=== PATIENT | female | born 1990 | race Hispanic/Latino ===

== ENCOUNTER 2017-12-01 08:35 | Emergency (ER) | payer SELFPAY ==
[2017-12-01 09:41] LABS: Urine Blood TRACE (NEG); Urine Glucose NEGATIVE (NEG); Urine Protein NEGATIVE (NEG); Urine Specific Gravity >1.030 (1.005-1.030); Urine pH 5.5 (5.0-7.0)
[2017-12-01 10:00] LABS: Absolute Lymphocytes (CBC) 2.2 K/uL (0.7-4.9); Absolute Monocytes 0.5 K/uL (0.1-1.3); Absolute Neutrophil 6.1 K/uL (1.8-8.0); Basophils % 0.3 % (0-1.3); Eosinophils % 1.7 % (0-4.4); Hematocrit 41.4 % (36.0-45.0); Lymphocytes % 24.4 % (15.3-44.8); MCV 93.6 fL (80-100); MPV 9.8 fL (7.6-11.3); Monocytes % 5.2 % (3.3-12.3); RBC Red Blood Cell Count 4.43 M/uL (3.86-4.86)
[2017-12-01 10:09] LABS: Bicarbonate 23 mEq/L (21-31); Glucose Level 101 mg/dL (65-120); Potassium 3.7 mEq/L (3.6-5.0); Sodium Level 138 mEq/L (135-145)
[2017-12-01 10:10] LABS: BUN Blood Urea Nitrogen 9 mg/dL (6-20)
--- NOTE | 2017-12-01 11:15 | RAD REPORT ---
EXAM DESCRIPTION: US - Transvaginal OB - 12/01/2017 10:40 am CLINICAL HISTORY: Vaginal bleeding, positive study COMPARISON: None. FINDINGS: A round anechoic structure is present in the fundal endometrial cavity. This is most likel y a gestational sac at 5 weeks 0 day size. No pole or yolk sac confirmed. No hematoma, mass or other abnormality within the endometrial cavity. Cervical canal appears closed. Patient has prominent veins in the adnexa and periphery of the uterus has a normal variant. No suspicious myometrial mass. The Both ovaries are identifiable and showed no suspicious solid or cystic mass. No abnormal blood or flu id collection in the cul-de-sac. No adnexal masses are present. IMPRESSION: A 5 week 5 day sized gestational sac is seen in the fundal endometrial cavity. No yolk s ac or pole at this time. No intrauterine hematoma or mass. No adnexal abnormality seen. Cervix is closed. Repeat ultrasound imaging could be performed if serial HCG values indicate ongoing .
--- NOTE | 2017-12-01 11:36 | ER ---
Nurse's Notes [facility] Name: Brittani Sykes Age: 27 yrs Sex: Female : 1990 Arrival Date: 12/01/2017 Time: 08:38 Bed 17 Private MD: Diagnosis: Threatened Presentation: 12/01 09:08 Presenting complaint: Patient states: uruguayan speaking only: LMP- 10/21/17; hx of hj previous miscarriages; i started bleeding today; like a "period" type of bleed; denies fever and chills; reports nausea;. Transition of care: patient was not received from another setting of care. Onset of symptoms was December 01, 2017. Initial Sepsis Screen: Does the patient meet any 2 criteria? No. Patient's initial sepsis screen is negative. Does the patient have a suspected source of infection? No. Patient's initial sepsis screen is negative. Care prior to arrival: None. 09:08 Method Of Arrival: Ambulatory hj 09:08 Acuity: VERA 3 hj Triage Assessment: 09:11 General: Appears in no apparent distress. uncomfortable, Behavior is calm, cooperative, hj appropriate for age. Pain: Complains of pain in abdomen. : Reports vaginal bleeding that is. 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 - Social history:: Smoking status: Patient/guardian denies using tobacco. Screenin:47 Abuse screen: Denies threats or abuse. Nutritional screening: No deficits noted. ae1 Tuberculosis screening: No symptoms or risk factors identified. Fall Risk None identified. Assessment: 09:26 General: Appears in no apparent distress. comfortable, well groomed, Behavior is calm, ae1 cooperative. Neuro: Level of Consciousness is awake, alert, obeys commands, Oriented to person, place, time, situation. Cardiovascular: Patient's skin is warm and dry. Respiratory: Airway is patent Respiratory effort is even, unlabored, Respiratory pattern is regular, symmetrical. GI: No signs and/or symptoms were reported involving the gastrointestinal system. Patient currently denies abdominal pain. : Reports vaginal bleeding that is bright red, moderate flow, Patient denies passing clots. EENT: No signs and/or symptoms were reported regarding the EENT system. Derm: Skin is normal. Musculoskeletal: No signs and/or symptoms reported regarding the musculoskeletal system. 11:00 Reassessment: Patient appears in no apparent distress at this time. Patient and/or ae1 family updated on plan of care and expected duration. Pain level reassessed. Patient denies pain at this time. 12:07 Obstetrical Assessment: General assessment: awake and alert. ae1 Vital Signs: 09:11 Pulse 79; Resp 18; Temp 98.0(TE); Pulse Ox 100% on R/A; Weight 58.97 kg; Height 5 ft. 8 hj in. (172.72 cm); 10:51 BP 116 / 85; Pulse 77; Resp 18; Pulse Ox 100% ; ae1 09:11 Body Mass Index 19.77 (58.97 kg, 172.72 cm) hj Vitals: 12:06 Heart Tones Please see ultrasound report. . ae1 ED Course: 08:38 Patient arrived in ED. rg4 09:10 Triage completed. hj 09:11 Arm band placed on right wrist. hj 09:18 Fede La PA is PHCP. cp 09:18 Kalpesh Arteaga MD is Attending Physician. cp 09:23 Bernardo Bailon, MERLE is Primary Nurse. ae1 09:46 Inserted saline lock: 20 gauge in right antecubital area, using aseptic technique. ae1 Blood collected. 09:47 Bed in low position. Call light in reach. Side rails up X 1. Pulse ox on. NIBP on. Warm ae1 blanket given. 10:40 Urine collected: clean catch specimen, clear. mh5 10:41 Transvaginal OB US In Process Unspecified. EDMS 10:51 Patient moved back from ultrasound. ae1 12:05 Assist provider with pelvic exam: Set up pelvic tray. Performed by Fede FOREMAN ae1 Patient tolerated well. IV discontinued, intact, bleeding controlled, No redness/swelling at site. Pressure dressing applied. Administered Medications: No medications were administered Point of Care Testing: Urine : 12:06 hCG Reading: Positive; ae1 Outcome: 11:36 Discharge ordered by . cp 12:07 Discharged to home ambulatory, with family, with significant other. ae1 12:07 Condition: stable 12:07 Discharge instructions given to patient, significant other, Instructed on discharge instructions, follow up and referral plans. medication usage, Demonstrated understanding of instructions, Prescriptions given X 1. 12:08 Patient left the ED. ae1 Signatures: Dispatcher [employer] EDMS Antwan Mejia RN RN Fede La PA PA cp Elliott, Andrea, RN RN ae1 Adwoa Potter 4 Mila Oneal [facility]
--- NOTE | 2017-12-01 11:37 | EDPHYS ---
Physician Documentation [facility] Name: Brittani Sykes Age: 27 yrs Sex: Female : 1990 Arrival Date: 12/01/2017 Time: 08:38 Bed 17 Private MD: ED Physician Kalpesh Arteaga HPI: 12/01 09:26 This 27 yrs old Female presents to ER via Ambulatory with complaints of cp Vaginal Bleeding, + Preg <12wks. 09:26 The patient presents to the emergency department with vaginal bleeding, that is cp moderate, with no clots. 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 - Social history:: Smoking status: Patient/guardian denies using tobacco. ROS: 09:32 Constitutional: Negative for body aches, chills, fever, poor PO intake. cp 09:32 Eyes: Negative for injury, pain, redness, and discharge. cp 09:32 ENT: Negative for drainage from ear(s), ear pain, sore throat, difficulty swallowing, difficulty handling secretions. 09:32 Cardiovascular: Negative for chest pain, edema, palpitations. 09:32 Respiratory: Negative for cough, shortness of breath, wheezing. 09:32 Abdomen/GI: Positive for abdominal pain, nausea, Negative for vomiting, diarrhea, constipation, black/tarry stool, rectal bleeding. 09:32 : Positive for vaginal bleeding, Negative for urinary symptoms, flank pain. 09:32 Skin: Negative for cellulitis, rash. 09:32 Neuro: Negative for altered mental status, dizziness, headache, weakness. 09:32 All other systems are negative. Exam: 09:35 Constitutional: The patient appears in no acute distress, alert, awake, non-toxic, well cp developed, well nourished. 09:35 Head/Face: Normocephalic, atraumatic. cp 09:35 Eyes: Pupils equal round and reactive to light, extra-ocular motions intact. Lids and cp lashes normal. Conjunctiva and sclera are non-icteric and not injected. Cornea within normal limits. Periorbital areas with no swelling, redness, or edema. ENT: Nares patent. No nasal discharge, no septal abnormalities noted. Tympanic membranes are normal and external auditory canals are clear. Oropharynx with no redness, swelling, or masses, exudates, or evidence of obstruction, uvula midline. Mucous membranes moist. Chest/axilla: Normal chest wall appearance and motion. Nontender with no deformity. No lesions are appreciated. Cardiovascular: Regular rate and rhythm with a normal S1 and S2. No gallops, murmurs, or rubs. Normal PMI, no JVD. No pulse deficits. Respiratory: Lungs have equal breath sounds bilaterally, clear to auscultation and percussion. No rales, rhonchi or wheezes noted. No increased work of breathing, no retractions or nasal flaring. 09:35 Abdomen/GI: Inspection: abdomen appears normal, Bowel sounds: active, all quadrants, Palpation: soft, in all quadrants, mild abdominal tenderness, in the suprapubic area, rebound tenderness, is not appreciated, voluntary guarding, is not appreciated, involuntary guarding, is not appreciated. 09:35 Back: CVA tenderness, is absent. 11:20 : CVA tenderness, is absent, Pelvic Exam: External exam: is normal, Speculum exam: cp scant bleeding, os that is closed, no tissue in cervix is seen, no tissue in vagina is seen, bimanual exam reveals uterine tenderness, no adnexa tenderness or masses bilaterally, discharge, white, Kalee. Sexual behavior: the patient is sexually active, and reports a single partner. Vital Signs: 09:11 Pulse 79; Resp 18; Temp 98.0(TE); Pulse Ox 100% on R/A; Weight 58.97 kg; Height 5 ft. 8 hj in. (172.72 cm); 10:51 BP 116 / 85; Pulse 77; Resp 18; Pulse Ox 100% ; ae1 09:11 Body Mass Index 19.77 (58.97 kg, 172.72 cm) hj MDM: 09:18 Patient medically screened. cp 09:30 Differential diagnosis: STD, ectopic . cp 11:35 Data reviewed: vital signs, nurses notes, lab test result(s), radiologic studies, cp ultrasound, and as a result, I will discharge patient. 11:35 Counseling: I had a detailed discussion with the patient and/or guardian regarding: the cp historical points, exam findings, and any diagnostic results supporting the discharge/admit diagnosis, lab results, radiology results, the need for outpatient follow up, an OB/Gyne specialist, to return to the emergency department if symptoms worsen or persist or if there are any questions or concerns that arise at home. 11:35 ED course: VSS. Discussed results of labs and US. Will discharge to home with pelvic cp rest precautions and recommend 48 hr recheck of beta-hcg. 12/01 09:28 Order name: Urine Dipstick--Ancillary (enter results); Complete Time: 10:49 12/01 09:28 Order name: Urine --Ancillary (enter results); Complete Time: 10:49 12/01 09:28 Order name: Quantitative Hcg; Complete Time: 10:49 12/01 10:49 Interpretation: HCGQ 2786.0; Reviewed. 12/01 09:28 Order name: Basic Metabolic Panel; Complete Time: 10:49 cp 12/01 09:28 Order name: CBC with Diff; Complete Time: 10:49 cp 12/01 09:28 Order name: Abo/rh Typing; Complete Time: 10:49 12/01 09:13 Order name: Urine Dipstick-Ancillary (obtain specimen); Complete Time: 09:34 12/01 09:13 Order name: Urine Test (obtain specimen); Complete Time: 09:34 12/01 09:28 Order name: IV Saline Lock; Complete Time: 09:46 cp 12/01 09:28 Order name: Labs collected and sent; Complete Time: 09:46 cp 12/01 09:28 Order name: NPO; Complete Time: 09:38 cp 12/01 09:28 Order name: Pelvic Exam Setup; Complete Time: 09:38 cp 12/01 09:28 Order name: Transvaginal OB US; Complete Time: 11:34 cp 12/01 10:31 Order name: ABO/RH no charge; Complete Time: 10:49 EDMS Administered Medications: No medications were administered Point of Care Testing: Urine : 12:06 hCG Reading: Positive; ae1 Disposition: 16:51 Co-signature as Attending Physician, Kalpesh Arteaga MD. rn Disposition: 12/01/17 11:36 Discharged to Home. Impression: Threatened . - Condition is Stable. - Discharge Instructions: Medicines During , Threatened Miscarriage, Pelvic Rest, Threatened Miscarriage, [id number]. - Prescriptions for Vitamin 27- 0.8 mg Oral Tablet - take 1 tablet by ORAL route once daily; 60 tablet. - Medication Reconciliation Form, Thank You Letter, Antibiotic Education, Prescription Opioid Use form. - Follow up: Private Physician; When: 48 Hours; Reason: Repeat Beta-HCG (48 Hours). - Problem is new. - Symptoms are unchanged. Signatures: Dispatcher [employer] EDGA Kalpesh Arteaga MD MD rn Joaquin, Henry, RN RN hj Page, Corey, PA PA cp Elliott, Andrea, RN RN ae1 Corrections: (The following items were deleted from the chart) 12:08 11:36 12/01/2017 11:36 Discharged to Home. Impression: Threatened . Condition ae1 is Stable. Forms are Medication Reconciliation Form, Thank You Letter, Antibiotic Education, Prescription Opioid Use. Follow up: Private Physician; When: 48 Hours; Reason: Repeat Beta-HCG (48 Hours). Problem is new. Symptoms are unchanged. cp
== END 2017-12-01 12:08 | disposition home or self-care (01) ==
LOC: ER 08:35
DX: O20.0 Threatened abortion (principal)
CPT/HCPCS: 36415; 76817; 80048; 81003; 81025; 84702; 85025; 86900; 86901; 99285

== ENCOUNTER 2018-08-08 19:27 | Emergency (ER) | payer SELFPAY ==
[2018-08-08 20:18] LABS: Absolute Lymphocytes (CBC) 1.5 K/uL (0.7-4.9); Absolute Monocytes 0.9 K/uL (0.1-1.3); Absolute Neutrophil 8.6 K/uL (1.8-8.0); Basophils % 0.2 % (0-1.3); Eosinophils % 0.4 % (0-4.4); Hematocrit 40.4 % (36.0-45.0); Lymphocytes % 13.4 % (15.3-44.8); MPV 8.8 fL (7.6-11.3); RBC Red Blood Cell Count 4.42 M/uL (3.86-4.86)
[2018-08-08] MEDS ORDERED: MORPHINE 4 MG/ML SYR ONE (20:20)
[2018-08-08] MEDS ORDERED: ONDANSETRON 4 MG/2 ML VIAL ONE (20:20)
[2018-08-08] MEDS ORDERED: NA CHLORIDE 0.9% 1,000 ML ONE (20:21)
[2018-08-08 20:31] LABS: Urine Blood TRACE (NEG); Urine Glucose NEGATIVE (NEG); Urine Protein NEGATIVE (NEG); Urine pH 7.5 (5.0-7.0)
[2018-08-08 20:35] LABS: ALT/SGPT 22 U/L (12-78); AST/SGOT 16 U/L (15-37); Albumin 3.8 g/dL (3.4-5.0); Alkaline Phosphatase 79 U/L (45-117); BUN Blood Urea Nitrogen 8 mg/dL (7-18); Bicarbonate 24 mmol/L (21-32); Bilirubin Direct 0.3 mg/dL (0-0.2); Bilirubin Total 1.2 mg/dL (0.2-1.0); Glucose Level 90 mg/dL (74-106); Lipase 75 U/L (73-393); Potassium 3.6 mmol/L (3.5-5.1); Protein, Total 8.1 g/dL (6.4-8.2); Sodium Level 140 mmol/L (136-145)
--- NOTE | 2018-08-08 21:00 | RAD REPORT ---
EXAM DESCRIPTION: CT - Abdomen Pelvis W Contrast - 08/08/2018 8:38 pm CLINICAL HISTORY: Abdominal pain, cough COMPARISON: None. TECHNIQUE: Biphasic, helical CT imaging of the abdomen and pelvis was performed following 100 ml non -ionic IV contrast. No oral contrast. All CT scans are performed using dose optimization technique as appropriate and may include automated exposure control or mA/KV adjustment according to patient size. FINDINGS: Patchy interstitial and alveolar opacities are present as a minimal focus in the posterior right gutter. anteromedial right base also shows a 3 centimeter area of focal consolidation. Patchy pneumonia is favored for both findings. No cardiomegaly or pericardial effusion. The liver, spleen, and pancreas show no suspicious findings. Cholecystectomy clips are present. No bi liary tree abnormality. Symmetric renal function is seen with no hydronephrosis or suspicious renal mass. No pyelonephritis o r acute parenchymal process. No bladder abnormalities. No adrenal abnormalities. No gastric abnormality. Proximal small bowel loops are unremarkable. Fluid-filled distal small bowel loops are present. No appendicitis findings. A few small mesenteric lymph nodes are seen. No free ai r, free fluid or inflammatory stranding. No mass or bulky lymphadenopathy. A small fat only umbilica l hernia is present. Uterus and ovaries show no suspicious findings. No suspicious bony findings. IMPRESSION: Patchy right lung base pneumonia findings are present. Prominent distal small bowel loops are present without obstruction, mass or wall thickening. Findings could reflect a nonspecific enteritis.
[2018-08-08] MEDS ORDERED: levoFLOXacin 750 MG TAB ONE (21:25)
--- NOTE | 2018-08-08 21:53 | ER ---
Nurse's Notes [facility] Name: Brittani Sykes Age: 28 yrs Sex: Female : 1990 Arrival Date: 08/08/2018 Time: 19:30 Bed 15 Private MD: Diagnosis: Vomiting;Diarrhea, unspecified;Pneumonia Presentation: 08/08 19:31 Presenting complaint: states: pt only speaks chinese. abdominal pain, upper ch since 0000, with vomiting diarrhea, and cough. felt feverish. Transition of care: patient was not received from another setting of care. Onset of symptoms was August 08, 2018 at 00:00. Initial Sepsis Screen: Does the patient meet any 2 criteria? No. Patient's initial sepsis screen is negative. Does the patient have a suspected source of infection? No. Patient's initial sepsis screen is negative. Care prior to arrival: None. 19:31 Method Of Arrival: Ambulatory 19:31 Acuity: VERA 3 22:12 Risk Assessment: Do you want to hurt yourself or someone else? Patient reports no tl2 desire to harm self or others. Triage Assessment: 19:32 General: Appears in no apparent distress. uncomfortable, Behavior is cooperative. Pain: Complains of pain in epigastric area, right upper quadrant and left upper quadrant. GI: Reports upper abdominal pain, diarrhea, nausea, vomiting. 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 - Social history:: Smoking status: Patient/guardian denies using tobacco. - Ebola Screening: : Patient negative for fever greater than or equal to 101.5 degrees Fahrenheit, and additional compatible Ebola Virus Disease symptoms Patient denies exposure to infectious person Patient denies travel to an Ebola-affected area in the 21 days before illness onset No symptoms or risks identified at this time. Screenin:57 Abuse screen: Denies threats or abuse. Nutritional screening: No deficits noted. jb4 Tuberculosis screening: No symptoms or risk factors identified. Fall Risk Total Mcelroy Fall Scale indicates No Risk (0-24 pts). Assessment: 19:57 General: Appears in no apparent distress. uncomfortable, Behavior is calm, cooperative, jb4 appropriate for age. Pain: Complains of pain in abdomen Pain does not radiate. Pain currently is 6 out of 10 on a pain scale. Quality of pain is described as burning. Neuro: Level of Consciousness is awake, alert, obeys commands, Oriented to person, place, time, situation. Cardiovascular: Patient's skin is warm and dry. Respiratory: Airway is patent Respiratory effort is even, unlabored, Respiratory pattern is regular, symmetrical. GI: Abdomen is flat, non-distended, Bowel sounds present X 4 quads. Abd is soft X 4 quads Abd is non tender in right lower quadrant and left lower quadrant Abdomen is tender to palpation in epigastric area, right upper quadrant and left upper quadrant Reports upper abdominal pain, diarrhea, nausea, vomiting. : No signs and/or symptoms were reported regarding the genitourinary system. EENT: No signs and/or symptoms were reported regarding the EENT system. Derm: Skin is intact, Skin is pink, warm \T\ dry. Musculoskeletal: Circulation, motion, and sensation intact. 20:51 Reassessment: Patient appears in no apparent distress at this time. Patient and/or jb4 family updated on plan of care and expected duration. Pain level reassessed. Patient is alert, oriented x 3, equal unlabored respirations, skin warm/dry/pink. Patient states feeling better. 22:10 Reassessment: Patient appears in no apparent distress at this time. Patient and/or tl2 family updated on plan of care and expected duration. Pain level reassessed. Patient is alert, oriented x 3, equal unlabored respirations, skin warm/dry/pink. pt and family verbalized understanding of discharge instructions, need for follow up and prescription usage Patient states feeling better. Vital Signs: 19:32 BP 108 / 75; Pulse 110; Resp 18; Temp 99.1; Pulse Ox 97% on R/A; Weight 61.23 kg; ch Height 5 ft. 3 in. (160.02 cm); Pain 8/10; 20:45 BP 101 / 76; Pulse 87; Resp 16; Pulse Ox 100% on R/A; jb4 22:10 BP 110 / 84; Pulse 85; Resp 18; Pulse Ox 100% on R/A; tl2 19:32 Body Mass Index 23.91 (61.23 kg, 160.02 cm) ED Course: 19:30 Patient arrived in ED. 19:32 Triage completed. 19:32 Arm band placed on left wrist. Patient placed in an exam room, on a stretcher. 19:34 Kennedy Ga PA is PHCP. [facility] 19:34 Kalpesh Arteaga MD is Attending Physician. [facility] 19:36 Sathya Morelos, MERLE is Primary Nurse. jb4 19:57 Patient has correct armband on for positive identification. Placed in gown. Bed in low jb4 position. Call light in reach. Side rails up X 1. Pulse ox on. NIBP on. 20:00 Initial lab(s) drawn, by me, sent to lab. Inserted saline lock: 20 gauge in right jb4 antecubital area, using aseptic technique. Blood collected. 20:[address] via wheelchair. ka1 20:33 CT completed. Patient tolerated procedure well. ka1 20:38 CT Abd/Pelvis - W/Contrast In Process Unspecified. EDMS 20:[address] from [address]. ka1 22:10 No provider procedures requiring assistance completed. IV discontinued, intact, tl2 bleeding controlled, No redness/swelling at site. Pressure dressing applied. Administered Medications: 20:27 Drug: NS 0.9% 1000 ml Route: IV; Rate: 1 bolus; Site: right antecubital; jb4 22:12 Follow up: IV Status: Completed infusion; IV Intake: 1000ml tl2 20:28 Drug: Zofran 4 mg Route: IVP; Site: right antecubital; jb4 20:53 Follow up: Response: No adverse reaction jb4 20:30 Drug: morphine 2 mg Route: IVP; Site: right antecubital; jb4 20:53 Follow up: Response: No adverse reaction; Pain is decreased jb4 21:13 CANCELLED (different abx used): Rocephin - (cefTRIAXone) 1 grams IVPB once over 30 jmm mins; (mix in 50 mL NS) 21:17 Drug: LevaQUIN 750 mg Route: PO; jb4 22:12 Follow up: Response: No adverse reaction tl2 Intake: 22:12 IV: 1000ml; Total: 1000ml. tl2 Outcome: 21:52 Discharge ordered by . trina 22:10 Discharged to home ambulatory, with family. tl2 22:10 Condition: stable 22:10 Discharge instructions given to patient, family, Instructed on discharge instructions, follow up and referral plans. medication usage, Demonstrated understanding of instructions, follow-up care, medications, Prescriptions given X 2. 22:13 Patient left the ED. jb4 Signatures: Dispatcher [employer] EDMS Sona Arroyo, RN RN Kennedy Valentine PA PA jmm Knox, Taylor, RN RN tl2 Sathya Morelos RN RN jb4 Jenniffer Gracia Corrections: (The following items were deleted from the chart) 20:52 20:51 Reassessment: Patient appears in no apparent distress at this time. Patient jb4 and/or family updated on plan of care and expected duration. Pain level reassessed. Patient is alert, oriented x 3, equal unlabored respirations, skin warm/dry/pink. jb4
--- NOTE | 2018-08-08 21:54 | EDPHYS ---
Physician Documentation [facility] Name: Brittani Sykes Age: 28 yrs Sex: Female : 1990 Arrival Date: 08/08/2018 Time: 19:30 Bed 15 Private MD: ED Physician Kalpesh Arteaga HPI: 08/08 19:51 This 28 yrs old Female presents to ER via Ambulatory with complaints of jmm Abdominal Pain. 19:51 The patient presents with abdominal pain. Onset: The symptoms/episode began/occurred jmm gradually, 1 day(s) ago. The symptoms do not radiate. Associated signs and symptoms: Pertinent positives: nausea and vomiting, diarrhea. This is a 28 year old female with no chronic medical conditions that presents to the ED with left upper abdominal pain, vomiting, and diarrhea beginning last night. Patient states she recently finished a course of abx for a cold. Patient also states recently returning from [place]. . 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 - Social history:: Smoking status: Patient/guardian denies using tobacco. - Ebola Screening: : Patient negative for fever greater than or equal to 101.5 degrees Fahrenheit, and additional compatible Ebola Virus Disease symptoms Patient denies exposure to infectious person Patient denies travel to an Ebola-affected area in the 21 days before illness onset No symptoms or risks identified at this time. ROS: 19:51 Cardiovascular: Negative for chest pain, palpitations, and edema, Respiratory: Negative jmm for shortness of breath, cough, wheezing, and pleuritic chest pain. 19:51 Constitutional: Positive for body aches, chills. 19:51 Abdomen/GI: Positive for abdominal pain, nausea and vomiting, diarrhea. 19:51 All other systems are negative. Exam: 19:51 Constitutional: This is a well developed, well nourished patient who is awake, alert, jmm and in no acute distress. Head/Face: atraumatic. Eyes: EOMI, no conjunctival erythema appreciated ENT: Moist Mucus Membranes Neck: Trachea midline, Supple Chest/axilla: Normal chest wall appearance and motion. Cardiovascular: Regular rate and rhythm. No edema appreciated Respiratory: Normal respirations, no respiratory distress appreciated 19:51 Constitutional: The patient appears in no acute distress, alert, awake. 19:51 Abdomen/GI: Inspection: abdomen appears normal, Bowel sounds: normal, Palpation: soft, mild abdominal tenderness, in the left upper quadrant. 19:51 Back: ROM is normal. 19:51 Musculoskeletal/extremity: ROM: intact in all extremities. 19:51 Skin: Appearance: Color: normal in color. 19:51 Neuro: Orientation: is normal, Mentation: is normal, Memory: is normal. 19:51 Psych: Behavior/mood is pleasant, cooperative. Vital Signs: 19:32 BP 108 / 75; Pulse 110; Resp 18; Temp 99.1; Pulse Ox 97% on R/A; Weight 61.23 kg; ch Height 5 ft. 3 in. (160.02 cm); Pain 8/10; 20:45 BP 101 / 76; Pulse 87; Resp 16; Pulse Ox 100% on R/A; jb4 22:10 BP 110 / 84; Pulse 85; Resp 18; Pulse Ox 100% on R/A; tl2 19:32 Body Mass Index 23.91 (61.23 kg, 160.02 cm) ch MDM: 19:51 Patient medically screened. [facility] 21:16 Data reviewed: vital signs, nurses notes. [facility] 21:50 Data reviewed: lab test result(s), radiologic studies, CT scan. Counseling: I had a [facility] detailed discussion with the patient and/or guardian regarding: the historical points, exam findings, and any diagnostic results supporting the discharge/admit diagnosis, lab results, radiology results, the need for outpatient follow up, to return to the emergency department if symptoms worsen or persist or if there are any questions or concerns that arise at home. ED course: Patient is able to tolerate PO in the ED.Alert and non toxic in appearance. Patient was given strict return precautions. Patient understood and agrees with the plan of care. . 08/08 19:52 Order name: Basic Metabolic Panel; Complete Time: 20:46 [facility] 08/08 19:52 Order name: CBC with Diff; Complete Time: 20:46 [facility] 08/08 19:52 Order name: Creatinine for Radiology; Complete Time: 20:46 [facility] 08/08 19:52 Order name: Hepatic Function; Complete Time: 20:46 [facility] 08/08 19:52 Order name: Lipase; Complete Time: 20:46 [facility] 08/08 20:04 Order name: Urine Dipstick--Ancillary (enter results); Complete Time: 20:46 [facility] 08/08 19:52 Order name: IV Saline Lock; Complete Time: 20:04 [facility] 08/08 20:06 Order name: Urine --Ancillary (enter results); Complete Time: 20:46 [facility] 08/08 20:08 Order name: CT Abd/Pelvis - W/Contrast; Complete Time: 21:02 [facility] 08/08 19:52 Order name: Labs collected and sent; Complete Time: 20:04 [facility] 08/08 19:52 Order name: Urine Test (obtain specimen); Complete Time: 20:04 [facility] 08/08 21:13 Order name: PO challenge; Complete Time: 21:18 jmm Administered Medications: 20:27 Drug: NS 0.9% 1000 ml Route: IV; Rate: 1 bolus; Site: right antecubital; jb4 22:12 Follow up: IV Status: Completed infusion; IV Intake: 1000ml tl2 20:28 Drug: Zofran 4 mg Route: IVP; Site: right antecubital; jb4 20:53 Follow up: Response: No adverse reaction jb4 20:30 Drug: morphine 2 mg Route: IVP; Site: right antecubital; jb4 20:53 Follow up: Response: No adverse reaction; Pain is decreased jb4 21:13 CANCELLED (different abx used): Rocephin - (cefTRIAXone) 1 grams IVPB once over 30 jmm mins; (mix in 50 mL NS) 21:17 Drug: LevaQUIN 750 mg Route: PO; jb4 22:12 Follow up: Response: No adverse reaction tl2 Disposition: 08/09 03:12 Co-signature as Attending Physician, Kalpesh Arteaga MD. rn Disposition: 08/08/18 21:52 Discharged to Home. Impression: Vomiting, Diarrhea, unspecified, Pneumonia. - Condition is Stable. - Discharge Instructions: Food Choices to Help Relieve Diarrhea, Adult, Diarrhea, Adult, Nausea and Vomiting, Adult. - Prescriptions for Zofran ODT 4 mg Oral tablet,disintegrating - place 1 tablet by TRANSLINGUAL route every 4-6 hours; 20 tablet. Levaquin 750 mg Oral Tablet - take 1 tablet by ORAL route once daily for 10 days; 10 tablet. - Medication Reconciliation Form, Thank You Letter, Antibiotic Education, Prescription Opioid Use form. - Follow up: Private Physician; When: 2 - 3 days; Reason: Recheck today's complaints, Continuance of care, Re-evaluation by your physician. Signatures: Dispatcher [employer] EDSona Barksdale, RN RN Kennedy Valentine PA PA jmm Nieto, Roman, MD MD rn Bryson, James, RN RN jb4 Sabine Gleason RN tl2 Corrections: (The following items were deleted from the chart) 08/08 21:13 21:03 Rocephin - (cefTRIAXone) 1 grams IVPB once over 30 mins; (mix in 50 mL NS) trina ordered. trina 22:13 21:52 08/08/2018 21:52 Discharged to Home. Impression: Vomiting; Diarrhea, unspecified; jb4 Pneumonia. Condition is Stable. Forms are Medication Reconciliation Form, Thank You Letter, Antibiotic Education, Prescription Opioid Use. Follow up: Private Physician; When: 2 - 3 days; Reason: Recheck today's complaints, Continuance of care, Re-evaluation by your physician. trina
== END 2018-08-08 22:13 | disposition home or self-care (01) ==
LOC: ER 19:27
DX: R11.10 Vomiting, unspecified (principal); J18.9 Pneumonia, unspecified organism; R19.7 Diarrhea, unspecified
CPT/HCPCS: 36415; 74177; 80048; 80076; 81003; 81025; 83690; 85025; 96361; 96374; 96375; 99284; J2405; J7030; Q9967

== ENCOUNTER 2022-07-24 04:04 | Inpatient (IN) | payer MEDICAID, SELFPAY ==
--- NOTE | 2022-07-23 06:16 | PREOPHP ---
Date of Admission: 07/24/2022 History Of Present Illness: A 31-year-old, 8, para 2, 5 miscarriages, 2 C-sections, for repe at section. The patient will be 39 weeks tomorrow. The surgery was scheduled for day after tomorrow, but tomorrow is the patient's birthday and she wishes to move the up, which is "s igned" by me. The baby will be 39 weeks, which is in accordance with our guidelines. Infection; blo od loss; anesthetic complications; injury to bladder, bowel, ureter; postoperative complications; arias ts in legs; pneumonia discussed. The patient knows fully well this does not constitute all possible problems that could occur during or following surgery. Family History: Grandmother with hypertension and aunt, and grandmother with diabetes and aunt with cervical cancer. Past Surgical History: The patient has had a gallbladder and 2 C-sections. Allergies: NO ALLERGIES. Medications: vitamins prior to admission. Has been taking baby aspirin up until 35 weeks. Social History: No cigarettes. Physical Examination: HEENT: Clear. Pupils equal, round, reactive to light accommodation. Conjunctivae well perfused. N o oral, lingual, or buccal lesions. Chest and Lungs: Clear. Heart: Without murmurs, thrills, heaves, or rubs. Breasts: Not examined today. Abdomen: Term size. Baby is vertex with very half fingertip dilated. Assessment And Plan: We will proceed with repeat section tomorrow. ROSSANA/SUSHMA Voice ID: [id number]
[2022-07-24] MEDS ORDERED: CHLORHEXIDINE GLUCO 4% 120 ML TOP ONE (04:48)
[2022-07-24] MEDS ORDERED: Ringers Lactate 1,000 ML IV PRN (05:00)
[2022-07-24] MEDS ORDERED: Ringers Lactate 1,000 ML IV SCH (05:30)
[2022-07-24 05:36] VITALS: BMI 28.8
[2022-07-24 05:36] LABS: Absolute Lymphocytes (CBC) 2.7 K/uL (0.7-4.9); Hematocrit 35.5 % (36.0-45.0); Lymphocytes % 33.1 % (15.3-44.8); MCV 93.2 fL (80-100); MPV 10.8 fL (7.6-11.3); RBC Red Blood Cell Count 3.81 M/uL (3.86-4.86)
[2022-07-24 05:46] VITALS: O2SAT 97
[2022-07-24 05:49] LABS: SARS-CoV-2 Antigen Rapid Res Negative (Negative)
[2022-07-24] MEDS ORDERED: NA CIT/CITRIC AC 30 ML ORAL UDC PO ONE (06:00)
[2022-07-24] MEDS ORDERED: FAMOTIDINE 20 MG/2 ML VIAL IV ONE (06:00)
[2022-07-24] MEDS ORDERED: CEFAZOLIN 2 GM in NA CHLORIDE 0.9% 50 ML IVPB SCH (06:00)
[2022-07-24] MEDS ORDERED: METOCLOPRAMIDE 10 MG/2mL INJ IV SCH (06:00)
[2022-07-24 06:18] LABS: Specific Gravity 1.013 (1.005-1.030); Urine Bacteria <20 /HPF (<20); Urine Bilirubin NEGATIVE (Negative); Urine Blood Negative (Negative); Urine Clarity Turbid (Clear); Urine Color Light-Yellow (Yellow); Urine Glucose NEGATIVE (Negative); Urine Mucus Slight /HPF (None Seen); Urine Protein NEGATIVE (Negative); Urine RBC None Seen /HPF (None Seen); Urine Urobilinogen Normal (Normal)
[2022-07-24] MEDS ORDERED: CEFAZOLIN SODIUM 1 GM/VIAL ONE (06:38)
[2022-07-24] MEDS ORDERED: NA CHLORIDE 0.9% 100 ML ONE (06:40)
[2022-07-24 06:53] LABS: Hepatitis B surface AG Interp. Nonreactive (Nonreactive)
[2022-07-24] MEDS ORDERED: OXYTOCIN 10 UNIT/ML ML ONE ×2 (06:55→08:24)
[2022-07-24] MEDS ORDERED: EPHEDRINE SULF 50 MG/ML VIAL ONE (06:55)
[2022-07-24] MEDS ORDERED: MORPHINE SULFATE/PF 1 MG/ML (10 ML AMP) ONE (06:55)
[2022-07-24] MEDS ORDERED: LIDOCAINE 1% MPF 5 ML VIAL ONE (06:56)
[2022-07-24] MEDS ORDERED: NS 0.9% VIAL 10 ML ONE (06:57)
[2022-07-24] MEDS ORDERED: BUPIVACAINE 0.75% (PF) 2 ML SP ONE (07:21)
[2022-07-24] MEDS ORDERED: ONDANSETRON 4 MG/2 ML VIAL ONE (07:21)
[2022-07-24] MEDS ORDERED: GLYCOPYRROLATE 0.2 MG/ML SYR ONE (07:23)
[2022-07-24] MEDS ORDERED: METHYLERGONOVINE 0.2 MG TAB PO PRN (08:26)
[2022-07-24] MEDS ORDERED: DIPHENHYDRAMINE 25 MG TAB/CAP PO PRN (08:26)
[2022-07-24] MEDS ORDERED: KETOROLAC 30 MG/ML INJ IV PRN (08:26)
[2022-07-24] MEDS ORDERED: ACETAMINOPHEN 500 MG TAB PO PRN ×2 (08:26)
[2022-07-24] MEDS ORDERED: KETOROLAC 30 MG/ML INJ IM PRN (08:26)
[2022-07-24] MEDS ORDERED: BISACODYL 10 MG RECTAL SUPP PR PRN (08:26)
[2022-07-24] MEDS ORDERED: ONDANSETRON 4 MG/2 ML VIAL IV PRN (08:26)
[2022-07-24] MEDS ORDERED: Oxycodone HCl/Acetaminophen 1 TAB TAB PO PRN ×2 (08:26)
[2022-07-24] MEDS ORDERED: ONDANSETRON 4 MG (ODT) TAB PO PRN (08:26)
[2022-07-24] MEDS ORDERED: IBUPROFEN 600 MG TAB PO PRN (08:52)
[2022-07-24] MEDS ORDERED: D5LR 1,000 ML with OXYTOCIN 20 UNIT IV SCH ×2 (09:00)
[2022-07-24] MEDS ORDERED: OXYTOCIN/LR 1,000 ML IV SCH (09:00)
[2022-07-24] MEDS: D5LR 1,000 ML with OXYTOCIN 20 UNIT IV SCH ×2 (09:05)
--- NOTE | 2022-07-24 09:28 | OP ---
Surgeon: Toño Maguire MD Hunter: Dr. Guerra. Anesthesiologist: Roro Valdivia and Concha Connolly. Indications: A 32-year-old, 8, para 2, 5 miscarriages, 2 C-sections, for repeat sec tion. Full preoperative counseling concerning procedure and possible complications including infecti on; blood loss; anesthetic complications; injury to bladder, bowel, ureter; postoperative complicatio ns; clots in legs; pneumonia. The patient knows fully this does not constitute all the possible prob lems that could occur during or following surgery. Anesthesia: Spinal block anesthesia. Procedure In Detail: After adequate prepping and draping, time-out was performed. At this point, a Pfannenstiel incision was created along the previous incision site. The incision was carried to the fascia. The fascia was incised and incision carried transversely bilaterally. Anterior and posterio r fascial planes were developed with both blunt and sharp dissection. There was significant scarring in the midline, but a small defect was seen and entered. Traction was applied. Low transverse uter ine incision was created. The vertex would not easily elevate above the symphysis. Therefore, vacuu m was placed on the vertex, gentle traction upward and then the vertex clear to symphysis and was del ivered easily. Apgars 9 and 9. Female infant. Estimated 7-pound range. Cord blood was obtained. T he placenta was removed manually. Uterus cleared of clot and blood and exteriorized. Cervical os di lated with ring clamp. Uterus closed with a running locked stitch of 1 chromic. Estimated blood los s 700 cc or less during the procedure. Gutters clear of clot and blood. Uterus replaced in the darron toneal cavity. Inspection of suture line shows no further bleeding. The rectus muscles were reappro ximated loosely with 0 Vicryl 2 stitches. The fascia was closed with 1 Vicryl running from either an gle to the midline. Subcutaneous tissue closed with 2-0 plain. Kalpana used for the skin. The steven ent had been given 2 g of Ancef for prophylaxis, tolerated all procedures well, transferred back to h er room in good condition. Final Diagnoses: Term intrauterine at 39 weeks 1 day, repeat section, spinal bloc k anesthesia, vacuum-assisted delivery. ROSSANA/SUSHMA Voice ID: [id number] Report ID: [id number]
--- NOTE | 2022-07-24 09:28 | PN ---
The patient is laura every 2 minutes, now starting to become uncomfortable. Had been given Sta dol 1 mg IV, Phenergan 25 mg IM. Pelvic exam shows cervix still posterior, but she is a good 4 cm, b ut the baby is not really settled down well, still slightly is ballotable with the exam. She knows i f membranes rupture spontaneously, she is to tell us so we can check quickly to make sure there is no problem with the cord. We will wait another 30 minutes and then check her again. Once the baby com es down a bit lower, we can rupture membranes. She will probably want an epidural at that point. Delbert franks discussion with the patient and family. ROSSANA/SUSHMA Voice ID: [id number] Report ID: [id number]
[2022-07-24] MEDS ORDERED: CEFAZOLIN SODIUM 2 GM in NA CHLORIDE 0.9% 100 ML IVPB ONE (16:00)
[2022-07-24 16:03] LABS: Hematocrit 31.3 % (36.0-45.0)
[2022-07-24] MEDS ORDERED: OXYTOCIN/LR 20 UNIT/1,000 ML BAG IV SCH (17:00)
[2022-07-24 21:42] LABS: RPR (Rapid Plasma Reagin) NON-REACT (NON-REACT)
[2022-07-25] MEDS: D5LR 1,000 ML with OXYTOCIN 20 UNIT IV SCH ×2 (01:31)
[2022-07-26] MEDS ORDERED: FORMULATION-R RECTAL 57GM PR PRN (11:46)
[2022-07-26] MEDS ORDERED: HYDROCORTISONE ACETATE 25MG SUPP PR ONE (12:00)
[2022-07-26 14:44] VITALS: BP 128/70; TEMP 98
--- NOTE | 2022-07-27 03:50 | DS ---
Date of Discharge: 07/26/2022 Covering Physician: Dr. Yannick Hankins. Final Discharge Diagnoses: 1.Intrauterine 39 weeks' of gestation, delivered. 2.Previous scarred uterus. 3.Prior history of deliveries x2. 4.Single live . Procedure Preformed: On 07/24/2022 did a repeat low-transverse delivery by Dr. Maguire. Hospital Course: Brittani is a female, 32-year-old, G8, P2, with prior 2 C-sections is at 39 we eks of gestation admitting to the hospital for repeat . She had already been for and she gave to a female baby, scores of 9 and 9 and weight 7 pounds 9 ounces. Her postp artum course included IV hydration, prophylactic antibiotic, and her diet was slowly, but returned to normal. On postop day 1, examination was benign with a soft abdomen and firm uterus. Her vital sig ns were stable. On postop day 2, she was requested to go home. Examination was done in person plus education both Spanish and Faroese translations were done. Patient having some hemorrhoid discomfort and the bedside education in regarding to [id number] treatment were all done with the patient. In addition, she was given a medicational suppository ointment plus tucks pad given for comfort. S he was sent home in good and stable condition. Disposition: Home. Condition: Stable. Prescription: Tylenol No.3, #20, 1-2 tabs p.o. q.4-6 hours p.r.n. for pain. Diet: Regular diet. Education: Both breast-feeding education and hemorrhoid care were all discussed with the patient. H er blood type is O positive with rubella immune. BW/MODL Voice ID: [id number] Report ID: [id number]
--- NOTE | 2022-07-30 09:57 | PREOPHP ---
Date of Admission: 07/24/2022 History Of Present Illness: A 32-year-old 2, para 1, for repeat section. Infection ; blood loss; anesthetic complications; injury to bladder, bowel, and ureter; postoperative complicat ions; clots in legs; pneumonia discussed. Patient knows fully well this does not constitute all the possible problems that could occur during or following surgery. Family History: Noncontributory. Past Medical History: No allergies to medicines, although she says she is allergic to honey. Past Surgical History: She has had a gallbladder surgery, hernia repair, and . Medications: She had been taking vitamins. Social History: She does not smoke. Physical Examination: HEENT: Clear. Pupils equal, round, reactive to light and accommodation. Conjunctivae well perfused . No oral, lingual, or buccal lesions. Chest and Lungs: Clear. Heart: Without murmurs, thrills, heaves, or rubs. Breasts: Without masses on previous visits. Abdomen: Term size. Extremities: Clear without edema, cyanosis, or clubbing. Cervix is fingertip. Baby is vertex but s till very high in the pelvis. We will proceed with repeat section tomorrow. Patient knows not to eat or drink anything af ter midnight tonight and come to the hospital between 2:30 and 4 in the morning. She is Rh positive, RPR is negative, and in general good health. ROSSANA/SUSHMA Voice ID: [id number]
== END 2022-07-26 13:00 | disposition home or self-care (01) | DRG 788 ==
LOC: 2ND-WC 04:04
PROVIDERS: ADMIT Specialist; ATTEND Specialist
PROC: 10D00Z1 Extraction of Products of Conception, Low, Open Approach (ICD-10-PCS; principal; 2022-07-26)
DX: O34.211 Maternal care for low transverse scar from previous cesarean delivery (principal); Z3A.39 39 weeks gestation of pregnancy; Z37.0 Single live birth
CPT/HCPCS: 36415; 81001; 85014; 85018; 85025; 86592; 86850; 86900; 86901; 87340; 87811; 88307; A4216; J0690; J2001; J2405; J2590; J2765; J7120; J7121